=== PATIENT | male | born 1955 | race Caucasian/White ===

== ENCOUNTER 2017-09-26 22:51 | Emergency (ER) | payer MEDICAID ==
[2017-09-27 02:15] LABS: BASO # 0.1 K/uL (0.0-0.2); BASO % 0.9 % (0.0-2.0); EOS # 0.6 K/uL (0.0-0.7); EOS % 3.8 % (0.0-4.0); LYMPH # 4.1 K/uL (1.0-4.3); LYMPH % 25.8 % (20.0-40.0); MEAN CELL VOLUME 92.3 fl (80.0-94.0); MEAN CORPUSCULAR HEMOGLOBIN 30.9 pg (27.0-31.0); MEAN CORPUSCULAR HGB CONC 33.5 g/dL (33.0-37.0); MONO # 0.7 K/uL (0.0-0.8); MONO % 4.5 % (0.0-10.0); NEUT # 10.4 K/uL (1.8-7.0); RBC 5.18 Mil/uL (4.40-5.90); RED CELL DISTRIBUTION WIDTH 13.5 % (11.5-14.5)
[2017-09-27 02:25] LABS: ALB/GLOB RATIO 1.1 (1.0-2.1); ALT/SGPT 28 U/L (21-72); AST/SGOT 19 U/L (17-59); BLOOD UREA NITROGEN 9 mg/dl (9-20); GFR AFRICAN-AMERICAN > 60; GFR NON-AFRICAN AMERICAN > 60
--- NOTE | 2017-09-27 05:32 | ED PDOC ---
HPI: Psych/Substance Abuse Time Seen by Provider: 09/26/17 23:45 Chief Complaint (Nursing): Alcohol Ingestion Chief Complaint (Provider): Alcohol abuse History Per: Patient History/Exam Limitations: intoxication Onset/Duration Of Symptoms: Unknown Additional Complaint(s): 62 yo male with history of DM brought in by police for evaluation of ETOH. Pt with smell of alcohol. Pt responding only yes and no to questions. Past Medical History Reviewed: Historical Data, Nursing Documentation, Vital Signs Vital Signs: Last Vital Signs Temp 97.9 F 09/26/17 23:04 Pulse 78 09/26/17 23:04 Resp 18 09/26/17 23:04 BP 130/78 09/26/17 23:04 Pulse Ox 100 09/26/17 23:04 - Medical History PMH: Diabetes - Surgical History Surgical History: No Surg Hx - Family History Family History: States: No Known Family Hx - Living Arrangements Living Arrangements: With Family - Social History Current smoker - smoking cessation education provided: No Alcohol: Occasional Drugs: Denies - Allergies Allergies/Adverse Reactions: Allergies Allergy/AdvReac Type Severity Reaction Status Date / Time Unobtainable Allergy Verified 09/26/17 23:03 Review of Systems ROS Statement: Except As Marked, All Systems Reviewed And Found Negative Constitutional: Negative for: Fever, Chills Cardiovascular: Negative for: Chest Pain Respiratory: Negative for: Cough, Shortness of Breath Gastrointestinal: Negative for: Nausea, Vomiting, Abdominal Pain, Diarrhea Genitourinary Male: Negative for: Dysuria Skin: Negative for: Rash Physical Exam - Reviewed Nursing Documentation Reviewed: Yes Vital Signs Reviewed: Yes - Physical Exam Appears: Positive for: Well, Non-toxic, No Acute Distress Head Exam: Positive for: ATRAUMATIC, NORMAL INSPECTION, NORMOCEPHALIC Skin: Positive for: Normal Color, Warm, DRY Eye Exam: Positive for: Normal appearance ENT: Positive for: Normal ENT Inspection Neck: Positive for: Normal, Painless ROM Cardiovascular/Chest: Positive for: Regular Rate, Rhythm Respiratory: Positive for: CNT, Normal Breath Sounds Gastrointestinal/Abdominal: Positive for: Normal Exam, Soft. Negative for: Tenderness Back: Positive for: Normal Inspection Extremity: Positive for: Normal ROM Neurologic/Psych: Positive for: Alert. Negative for: Gait (Unsteady) - Laboratory Results Result Diagrams: 09/27/17 02:12 09/27/17 02:12 - ECG O2 Sat by Pulse Oximetry: 100 Pulse Ox Interpretation: Normal Medical Decision Making Medical Decision Makin - Pt alert with clear speech and steady gait. Pt denies N/V/D, dysuira, cough, fever, redness of the skin, headache or changes in appetite. PT states he does not drink every day. No suspicion for infectious cause of elevated WBC due to normal exam and review of symptoms. Pt with stable vitals. Disposition - Clinical Impression Clinical Impression: Alcohol abuse with intoxication - Patient ED Disposition Is Patient to be Admitted: No - Disposition Disposition: Routine/Home Disposition Time: 05:34 Condition: STABLE
[2017-09-27 06:23] VITALS: BP 142/79; PULSE 86; RESP 16; TEMP 98.4; O2SAT 98
== END 2017-09-27 06:30 | disposition home or self-care (01) ==
LOC: H.ER 22:51
DX: Z02.89 Encounter for other administrative examinations (principal)
CPT/HCPCS: 80053; 85025; G0480